=== PATIENT | female | born 1995 | race Caucasian/White ===

== ENCOUNTER 2018-11-04 17:15 | Emergency (ER) | payer SELFPAY ==
[2018-11-04 17:33] VITALS: BP 134/73; PULSE 103; TEMP 98.6; BMI 32.8
--- NOTE | 2018-11-04 17:49 | PDOC ---
History of Present Illness - General Chief Complaint: Vaginal Bleeding Stated Complaint: VAGINAL BLEEDING Time Seen by Provider: 11/04/18 17:43 History Source: Patient - History of Present Illness Timing/Duration: reports: constant Past History - Past Medical History Allergies/Adverse Reactions: Allergies Allergy/AdvReac Type Severity Reaction Status Date / Time blueberry Allergy Verified 11/04/18 17:34 peach Allergy Verified 11/04/18 17:34 strawberry Allergy Verified 11/04/18 17:33 tree nut Allergy Verified 11/04/18 17:33 Home Medications: Ambulatory Orders NK [No Known Home Medication] 11/04/18 COPD: No - Suicide/Smoking/Psychosocial Hx Smoking History: Current every day smoker Information on smoking cessation initiated: No Review of Systems - Review of Systems Constitutional: No: Chills, Fever ABD/GI: Yes: Abdominal cramping. No: Nausea, Vomiting : Yes: Hematuria. No: Burning, Dysuria, Discharge, Frequency, Flank Pain Musculoskeletal: No: Back Pain *Physical Exam - Vital Signs Last Vital Signs Temp Pulse Resp BP Pulse Ox 98.6 F 103 H 20 134/73 100 11/04/18 17:29 11/04/18 17:29 11/04/18 17:29 11/04/18 17:29 11/04/18 17:29 - Physical Exam General Appearance: Yes: Appropriately Dressed. No: Apparent Distress HEENT: positive: Normal Voice Neck: positive: Supple Respiratory/Chest: negative: Respiratory Distress Gastrointestinal/Abdominal: positive: Soft. negative: Tender Musculoskeletal: negative: CVA Tenderness Integumentary: positive: Dry, Warm Neurologic: positive: Fully Oriented, Alert, Normal Mood/Affect Moderate Sedation - Procedure Monitoring Vital Signs: Procedure Monitoring Vital Signs Temperature 98.6 F 11/04/18 17:29 Pulse Rate 103 H 11/04/18 17:29 Respiratory Rate 20 11/04/18 17:29 Blood Pressure 134/73 11/04/18 17:29 O2 Sat by Pulse Oximetry (%) 100 11/04/18 17:29 Medical Decision Making - Medical Decision Making 11/04/18 17:48 23-year-old female, (s/p 1 elec AB), ~6 weeks by dates, tested + on home test 10/23/18 with no care as of yet, here w/ vaginal spotting only when she wipes herself 2 days. Had abdominal cramping initially that has since resolved. No dysuria, nausea, vomiting, fever or chills. In the process of getting an OB per pt See exam 1st trimester bleed Stable w/ benign abd -ua -T&S -beta -US 11/04/18 19:00 Signed out to night team at this time *DC/Admit/Observation/Transfer Diagnosis at time of Disposition: Threatened - Referrals - Patient Instructions - Post Discharge Activity
[2018-11-04 18:22] LABS: URINE APPEARANCE CLEAR; URINE BILIRUBIN NEGATIVE (<2.0 mg/dL); URINE COLOR LTYELLOW; URINE GLUCOSE (UA) NEGATIVE (NEGATIVE); URINE KETONE NEGATIVE (NEGATIVE); URINE LEUK ESTERASE NEGATIVE (NEGATIVE); URINE NITRITE NEGATIVE (NEGATIVE); URINE PROTEIN NEGATIVE (NEGATIVE); URINE UROBILINOGEN NEGATIVE mg/dL (0.2-1.0)
[2018-11-04 18:25] LABS: EPI CELLS RARE /HPF (FEW); URINE MUCUS RARE
--- NOTE | 2018-11-04 19:34 | PDOC ---
*Physical Exam - Vital Signs Last Vital Signs Temp Pulse Resp BP Pulse Ox 98.6 F 103 H 20 134/73 100 11/04/18 17:29 11/04/18 17:29 11/04/18 17:29 11/04/18 17:29 11/04/18 17:29 ED Treatment Course - ADDITIONAL ORDERS Additional order review: Laboratory Results 11/04/18 11/04/18 11/04/18 18:13 18:13 18:13 Beta HCG, Quant 21251.3 Urine Color Ltyellow Urine Appearance Clear Urine pH 6.0 Ur Specific [place] 1.016 Urine Protein Negative Urine Glucose (UA) Negative Urine Ketones Negative Urine Blood 1+ H Urine Nitrite Negative Urine Bilirubin Negative Urine Urobilinogen Negative Ur Leukocyte Esterase Negative Urine WBC (Auto) 1 Urine RBC (Auto) 1 Ur Epithelial Cells Rare Urine Mucus Rare Blood Type A POSITIVE Antibody Screen Negative Medical Decision Making - Medical Decision Making Endorsed to me to follow the ultrasound and labs 11/04/18 19:31 Patient Full Name: GIO LOVE Patient Accession No: [id number] Patient : [id number] Reason for Exam: 1st trimester bleed Referring Physician: NELLY WASHINGTON Patient Name: IVAN POWERS THIS IS A PRELIMINARY REPORT FROM [facility] DATE OF SERVICE: 2018-11-04 18:19:21 IMAGES: 48 EXAM: TRANSVAGINAL US PREG HISTORY: 23-year-old female, first trimester bleed COMPARISON: None OB ultrasound November 04, 2018.: Grayscale, color flow Doppler images provided. Findings: Uterus retroverted in position. Intrauterine gestational sac present containing a yolk sac and pole. Yolk sac diameter 3 mm. Mean gestational sac diameter consistent with 6 weeks 0 days. Free Soil-rump length measurement 6 weeks 1 day. cardiac activity 134 bpm. Uterus measures 7.9 x 4.5 x 5.5 cm. Right ovary measures 3.9 x 2.2 x 2.1 cm. Left ovary measures 4.1 x 2.2 x 1.7 cm. Follicular changes present in bilateral ovaries. No free fluid noted within the cul-de-sac in the pelvis. Impression: 1.. Single live intrauterine at approximate 6 weeks 1 day plus or -3 days estimated gestational age. [place] based on ultrasound criteria June 29, 2019. This correlates with clinical dating. THIS DOCUMENT HAS BEEN ELECTRONICALLY SIGNED Mekhi Steiner MD 11/04/2018 19:06 YOVANNY Cruz. Please call Imaging Senior Resident Care Director [phone] with questions. INTERPRETING RADIOLOGIST: Mekhi Steiner MD Electronically Signed: Nov 04, 2018 07:07PM EST Patient is A+ 11/04/18 19:32 Urine is negative I discussed the physical exam findings, ancillary test results and final diagnoses with the patient. I answered all of the patient's questions. The patient was satisfied with the care received and felt comfortable with the discharge plan and treatment plan. The Patient agrees to follow up with the primary care physician within 24-72 hours. *DC/Admit/Observation/Transfer Diagnosis at time of Disposition: Threatened - Discharge Dispostion Disposition: HOME Condition at time of disposition: Stable - Referrals Referrals: Adriane Dubois MD [Staff Physician] - - Patient Instructions Printed Discharge Instructions: DI for Threatened Additional Instructions: Your Discharge Instructions: You must call primary care physician within 24 hours to arrange follow-up. Return to the Emergency Department with any new, persistent or worsening symptoms, for fever, chills, SOB, dizziness or any other concerning changes that may occur. Follow-up with [facility] call for an appointment. If you are bleeding more than 1 pad an hour return to the emergency room immediately. - Post Discharge Activity
== END 2018-11-04 20:02 | disposition home or self-care (01) ==
LOC: JER 17:15
DX: O26.891 Other specified pregnancy related conditions, first trimester (principal); O20.0 Threatened abortion; Z3A.01 Less than 8 weeks gestation of pregnancy
CPT/HCPCS: 36415; 76817-TC; 81003; 81015; 84702; 86850; 86900; 86901; 99282-25

== ENCOUNTER 2021-09-11 13:11 | Emergency (ER) | payer OTHER ==
[2021-09-11 13:17] VITALS: BP 133/77; BMI 34.5
[2021-09-11] MEDS ORDERED: DEXAMETHASONE SOD PHOSPHATE 10 MG/1 ML VIAL IM ONE (13:31)
[2021-09-11] MEDS ORDERED: DEXAMETHASONE SOD PHOSPHATE 10 MG/1 ML VIAL ONE (13:38)
[2021-09-11] MEDS ORDERED: ACETAMINOPHEN 500 MG TABLET (FP) PO ONE (13:40)
[2021-09-11] MEDS ORDERED: ACETAMINOPHEN 325 MG TABLET (FP) ONE (13:40)
[2021-09-11 14:28] VITALS: TEMP 100
[2021-09-11 14:42] VITALS: PULSE 100
== END 2021-09-11 14:59 | disposition home or self-care (01) ==
LOC: JER 13:11
PROC: 3E023GC Introduction of Other Therapeutic Substance into Muscle, Percutaneous Approach (ICD-10-PCS; principal; 2021-09-11)
DX: J02.9 Acute pharyngitis, unspecified (principal); Z11.52 Encounter for screening for COVID-19
CPT/HCPCS: 87651; 99284-25; C9803; J1100; U0003; U0005

== ENCOUNTER 2022-03-15 09:30 | Emergency (ER) | payer OTHER ==
[2022-03-15 09:40] VITALS: BMI 32.8
[2022-03-15] MEDS ORDERED: SODIUM CHLORIDE 1,000 ML IV ONE (10:45)
[2022-03-15 11:06] VITALS: TEMP 98.6
[2022-03-15 11:17] LABS: BASO % 0.6 % (0-2.0); EOS % 0.4 % (0-4.5); HEMATOCRIT 37.5 % (32.4-45.2); HEMOGLOBIN 12.7 GM/dL (10.7-15.3); LYMPH % 16.8 % (8-40); MCH 28.3 pg (25.7-33.7); MCHC 33.9 g/dl (32.0-36.0); MEAN CELL VOLUME 83.6 fl (80-96); MEAN PLT VOLUME 8.6 fl (7.5-11.1); MONO % 8.8 % (3.8-10.2); NEUT % 73.4 % (42.8-82.8); PLATELET COUNT 247 10^3/uL (134-434); RBC 4.49 M/mm3 (3.60-5.2); RDW 14.8 % (11.6-15.6); WHITE BLOOD COUNT 10.5 K/mm3 (4.0-10.0)
[2022-03-15 11:33] LABS: CALCIUM 8.6 mg/dL (8.5-10.1)
[2022-03-15 11:34] LABS: ALBUMIN 3.4 g/dl (3.4-5.0); BLOOD UREA NITROGEN 8.9 mg/dL (7-18)
[2022-03-15 11:37] LABS: CREATININE 0.6 mg/dL (0.55-1.3)
[2022-03-15 11:39] LABS: TOT PROT 6.8 g/dl (6.4-8.2)
[2022-03-15 11:50] LABS: HCG,QUALITATIVE URINE Positive
[2022-03-15 11:51] LABS: URINE APPEARANCE CLOUDY; URINE BILIRUBIN NEGATIVE (NEGATIVE); URINE COLOR YELLOW; URINE GLUCOSE (UA) NEGATIVE (NEGATIVE); URINE KETONE TRACE (NEGATIVE); URINE LEUK ESTERASE NEGATIVE (NEGATIVE); URINE NITRITE NEGATIVE (NEGATIVE); URINE PROTEIN TRACE (NEGATIVE)
[2022-03-15 12:06] LABS: BILIRUBIN,TOTAL 0.5 mg/dL (0.2-1)
[2022-03-15 16:43] VITALS: BP 169/74; PULSE 76
== END 2022-03-15 16:06 | disposition left against medical advice (07) ==
LOC: JER 09:30
DX: Z34.90 Encounter for supervision of normal pregnancy, unspecified, unspecified trimester (principal)
CPT/HCPCS: 0241U-QW; 36415; 71046-TC-FY; 76817-TC; 80053; 81003; 84702; 84703; 85025; 87070; 87086; 87651; 93005; 93010; 99281-25

== ENCOUNTER 2023-09-03 13:07 | Emergency (ER) | payer SELFPAY ==
[2023-09-03 13:12] VITALS: BP 127/82; RESP 18; TEMP 99.2; BMI 37.5
[2023-09-03 14:00] VITALS: PULSE 86
== END 2023-09-03 14:09 | disposition home or self-care (01) ==
LOC: JERFT 13:07 → JER 13:07 → JERFT 14:09
DX: S01.01XA Laceration without foreign body of scalp, initial encounter (principal); R51.9 Headache, unspecified; Y04.2XXA Assault by strike against or bumped into by another person, initial encounter
CPT/HCPCS: 99282-25